=== PATIENT | female | born 1955 | race Caucasian/White ===

== ENCOUNTER 2018-10-12 14:53 | Outpatient (CLI) | payer BC | END 2018-10-12 14:54 | disposition home or self-care (01) | LOC: CTENTCT 14:53 | PROVIDERS: ATTEND Otolaryngology Plastic Surgery within the Head & Neck | DX: J32.9 Chronic sinusitis, unspecified (principal) | CPT/HCPCS: 70486 ==

== ENCOUNTER 2021-03-19 07:09 | Day surgery (SDC) | payer BC ==
[2021-03-18 13:50] VITALS: BMI 30.9
[2021-03-19] MEDS ORDERED: AFRIN NASAL MIST 15 ML BOT ONE ×2 (08:18→08:34)
[2021-03-19] MEDS ORDERED: Lidocaine 1% w/Epinephrine 1:100K 20 ML VIAL ONE (08:34)
[2021-03-19] MEDS ORDERED: Ferric Subsulfate (ASTRINGYN) 8 GM VIAL ONE (08:34)
[2021-03-19] MEDS ORDERED: Midazolam HCl 2 mg/2 ml Vial ONE (08:35)
[2021-03-19] MEDS ORDERED: Fentanyl 250 MCG/5 ML VIAL ONE (08:41)
[2021-03-19] MEDS ORDERED: Succinylcholine 200 MG/10 ml SYRINGE FS ONE (09:01)
[2021-03-19] MEDS ORDERED: Ondansetron PF 4 MG/2 ML Vial ONE (09:01)
[2021-03-19] MEDS ORDERED: Lidocaine 1% PF 5 ML VIAL ONE (09:01)
[2021-03-19] MEDS ORDERED: Dexamethasone 20 MG/5 ML VIAL ONE (09:01)
[2021-03-19] MEDS ORDERED: PROPOFOL 200 MG/20 ML VIAL ONE (09:01)
[2021-03-19] MEDS ORDERED: ePHEDrine Sulfate 50 MG/10 ML VIAL ONE (09:01)
[2021-03-19] MEDS ORDERED: Labetalol HCl 100 MG/20 ML VIAL ONE ×2 (09:01→11:34)
[2021-03-19] MEDS ORDERED: Fentanyl 100 MCG/2 ML VIAL ONE ×2 (10:44→11:30)
[2021-03-19] MEDS ORDERED: Hydrocodone-Acetamin 15 ML UDCUP ONE ×2 (13:41→13:44)
== END 2021-03-19 14:12 | disposition home or self-care (01) ==
LOC: SDC 07:09
PROVIDERS: ATTEND Specialist
PROC: 0CTPXZZ Resection of Tonsils, External Approach (ICD-10-PCS; principal; 2021-03-19)
PROC: 09BL8ZZ Excision of Nasal Turbinate, Via Natural or Artificial Opening Endoscopic (ICD-10-PCS; principal; 2021-03-19)
PROC: 0CBNXZZ Excision of Uvula, External Approach (ICD-10-PCS; principal; 2021-03-19)
DX: J35.1 Hypertrophy of tonsils (principal); J35.8 Other chronic diseases of tonsils and adenoids; K13.79 Other lesions of oral mucosa; J34.3 Hypertrophy of nasal turbinates; G47.33 Obstructive sleep apnea (adult) (pediatric); K21.9 Gastro-esophageal reflux disease without esophagitis; E78.5 Hyperlipidemia, unspecified; E07.9 Disorder of thyroid, unspecified; I10 Essential (primary) hypertension; Z79.899 Other long term (current) drug therapy; Z88.0 Allergy status to penicillin; Z88.5 Allergy status to narcotic agent; Z91.048 Other nonmedicinal substance allergy status
CPT/HCPCS: 88304; J1100; J2250; J2405; J2704; J3010